=== PATIENT | female | born 1990 | race Caucasian/White ===

== ENCOUNTER 2017-09-13 21:35 | Inpatient (IN) ==
[2017-09-13] MEDS ORDERED: RINGER'S SOLUTION,LACTATED 1,000 ML IV ONE (22:43)
[2017-09-13] MEDS ORDERED: LIDOCAINE HCL 50 ML VIAL PERI PRN (22:43)
[2017-09-13] MEDS ORDERED: OXYTOCIN/DEXTROSE 5%-WATER 30 UNITS/500 ML BAG IV ONE (22:43)
[2017-09-13] MEDS ORDERED: PENICILLIN G POTASSIUM 5 MILLIONUNT in DEXTROSE 5 % IN WATER 100 ML IV ONE ×2 (22:49)
[2017-09-13 23:03] LABS: Hematocrit 31.3 % (37.0-47.0); Mean Cell Volume 86.5 fl (78-100); Mean Corpuscular Hemoglobin 30.4 pg (27-31); Mean Corpuscular Hgb Conc 35.1 g/dl (32-36); Mean Platelet Volume 9.5 fl (8-12.5); Neutrophil # 5.8 K/mm3 (1.3-6.0); Platelet Count 269 K/mm3 (150-450); Red Blood Count 3.62 M/mm3 (4.2-5.4); Red Cell Distribution Width 12.6 % (11.5-14.0); White Blood Count 9.1 K/mm3 (4.0-10.5)
[2017-09-14] MEDS ORDERED: BUPIVACAINE HCL/0.9 % NACL/PF 250 ML EP PRN (00:14)
[2017-09-14] MEDS ORDERED: NALOXONE HCL 1 MG/1 ML SYRG IV PRN (00:14)
[2017-09-14] MEDS ORDERED: ONDANSETRON HCL/PF 2 MG/ML VIAL IV PRN (00:14)
[2017-09-14] MEDS ORDERED: fentaNYL CITRATE/PF 50 MCG/ML AMPUL IT SCH (00:15)
--- NOTE | 2017-09-14 00:59 | ANES ---
Anesthesia Pre Procedure Eval Vitals/Labs: Last Vital Signs Temp 36.7 C 09/13/17 22:00 Pulse 94 09/13/17 22:00 Resp 18 09/13/17 22:00 BP 136/91 H 09/13/17 22:00 Pulse Ox 99 09/13/17 22:00 HOME MEDICATIONS Acetaminophen [Tylenol] 1,000 mg PO Q4H PRN 04/29/14 [Last Taken 04/29/14 11:30] Vits96/Iron Fum/Folic [ S] 1 tab PO DAILY 09/13/17 [Last Taken Unknown] Allergies/Adverse Reactions: Allergies Allergy/AdvReac Type Severity Reaction Status Date / Time pseudoephedrine HCl Allergy Severe Verified 05/16/14 20:50 [From [facility]] - Planned Procedure Planned Procedure: LABOR Medication List Reviewed:: Yes Allergies Verified: Yes - Family Anesthesia History Family History:: no untoward family reactions to anesthesia - Airway/Neck/Teeth Within Normal Limits:: Yes Teeth Condition: Intact, Missing Teeth Mallampatti Score: 2 Thyromental (T-M) distance: > 6 cm Mandibulo Hyoid distance: > 3 cm - Respiratory Respiratory: lungs clear Smoking Status: Former smoker - Cardiovascular Patient History - Cardiac/Respiratory: No pertinent hx Tolerates Activity: Fair Heart Sounds: S1 & S2, Regular - Anesthesia Assessment and Plan ASA Class: PS, II, E Anesthesia Type Plan: Epidural Planned difficult intubation/equipment available: No
--- NOTE | 2017-09-14 01:25 | ANES ---
Anesthesia Procedure Note Procedure Note: ANESTHESIA PROCEDURE NOTE Date of Procedure: 09/14/2017 Time of procedure: 02 18. Performed by: Mandeep Lee CRNA Front Office Associate: None. Preprocedure diagnosis: Active labor. Post procedure diagnosis: Same. Procedure: Insertion of labor epidural. Indications: The patient is a 27 -year-old multigravida female in active labor requesting labor epidural for pain management. Findings: See below. Details of the procedure: The patient was placed in a sitting position. Back was prepped with DuraPrep. Patient was then draped in a sterile fashion. Lidocaine 1% was infiltrated to the skin and subcutaneous tissues at the level of the L3 4 interspace. The epidural space was identified using a 18-gauge Tuohy needle with [id number]-zx-[id number] technique. 20 mcg fentanyl was given intrathecally using a 27 ga. spinal needle. Epidural catheter was inserted without difficulty. Negative test dose was elicited using 5 mL of 1.5% preservative-free lidocaine plus epinephrine 1 200,000. The epidural catheter was then taped and secured in place. EBL: Minimal. Fluids: N/A. Specimen: N/A. Post procedure condition: The patient tolerated the procedure well. No complications were noted. Thank you for this consultation. Plunkett CRNA
[2017-09-14] MEDS ORDERED: PENICILLIN G POTASSIUM 2.5 MILLIONUNT in DEXTROSE 5 % IN WATER 100 ML IV SCH ×2 (02:51)
[2017-09-14 02:59] LABS: Cocaine Ur Negative (NEGATIVE); Urine Barbiturate Negative (NEGATIVE); Urine Benzodiazepines Negative (NEGATIVE); Urine Opiates Positive (NEGATIVE); Urine PCP Negative (NEGATIVE); Urine THC Negative (NEGATIVE)
[2017-09-14] MEDS ORDERED: RINGER S LACTATED IV ONE (04:05)
[2017-09-14] MEDS ORDERED: RINGER'S SOLUTION,LACTATED 1,000 ML IV PRN (04:08)
--- NOTE | 2017-09-14 05:00 | HP ---
Chief Complaint - Chief Complaint Date of Service: 09/14/17 Time of Service: 04:30 Chief Complaint: vaginal bleeding and leaking fluid History of Present Illness: 27 yo at 37 4/7 wks presents to L&D complaining of postcoital vaginal bleeding and gush of fluid with persistent leaking of fluid since around 2114 last night. Patient states she had "rough sex" followed by vaginal bleeding and a gush of clear fluid. Vaginal bleeding like a light period, gush of fluid persisted to run down her leg till presenting here. She recently moved to [place] from [facility]. Denies problems with this or her previous ones. History of meth and THC use (last use 2 yrs ago - went through rehab. This complicated by smoker, poor dentition, + opiate on UDS, and insufficient PNC. Rh positive Rubella status unknown GBS unknown Medical History (Last Updated 09/14/17 @ 04:47 by Eric Duran DO) Chronic periodontal disease Loss of teeth due to extraction Methadone use disorder, mild, in sustained remission Tobacco abuse Family History: Family History (Last Updated 09/14/17 @ 04:48 by Eric Duran DO) Grandmother Cancer Social History: Preferred Language Greek Do you have any taoist or No cultural preference? Smoking Status smoker (1-2 pk/d) Review Of Systems (GEN) - Review of Systems EENTM: Present: Mouth Pain - s/p teeth extraction 2 wks ago, poor dentition- multiple caries Respiratory: Present: No Symptoms Reported Cardiac: Present: No Symptoms Reported Abdominal: Present: Other - contractions Genitourinary: Present: Other - LOF - clear aroun 2315 Musculoskeletal: Present: No Symptoms Reported Neurological: Present: No Symptoms Reported Skin: Present: No Symptoms Reported Endocrine: Present: No Symptoms Reported Allergies/Adverse Reactions: Allergies Allergy/AdvReac Type Severity Reaction Status Date / Time pseudoephedrine HCl Allergy Severe Verified 05/16/14 20:50 [From [facility]] Home Medications: HOME MEDICATIONS Acetaminophen [Tylenol] 1,000 mg PO Q4H PRN 04/29/14 [Last Taken 04/29/14 11:30] Vits96/Iron Fum/Folic [ S] 1 tab PO DAILY 09/13/17 [Last Taken Unknown] Exam - Exam Vital Signs: Vital Signs - Last Taken Temp 36.5 C 09/14/17 01:32 Pulse 77 09/14/17 01:32 Resp 16 09/14/17 01:32 BP 110/57 09/14/17 01:32 Pulse Ox 98 09/14/17 01:32 Constitutional: Present: Alert, Oriented x3, Cooperative, Moderate distress - with contractions ENT Exam: Present: hearing grossly normal, other - poor dentition with multiple caries and missing teeth Neck: Present: non-tender. Absent: thyromegaly Breasts: Present: Exam deferred Respiratory: Present: lungs clear, no respiratory distress Cardiovascular/Chest: Present: normal peripheral pulses, regular rate, rhythm, no edema, no murmur Abdomen: Present: soft, no rebound tenderness /Rectal: Present: Other - cervix 60/-3 upon admission, gross ROM - clear Extremity: Present: non-tender, no pedal edema, no calf tenderness Skin Exam: Present: normal color, warm/dry, no cyanosis Lymphatic: Present: no adenopathy Neurologic: Present: alert, normal mood/affect, oriented x 3 Appearance: Present: appropriate appearance Eye contact: Present: cooperative, good eye contact, normal speech Diagnostic Studies: Abnormal Lab Results 09/13/17 09/14/17 Range/Units 22:55 01:47 RBC 3.62 L (4.2-5.4) M/mm3 Hgb 11.0 L (12.5-16.0) gm/dL Hct 31.3 L (37.0-47.0) % Immature Gran # (Auto) 0.04 H (0.000-0.0310) K/mm3 Monocytes % 10.2 H (0.0-9) % Urine Opiates Screen Positive H (NEGATIVE) Laboratory Results WBC 9.1 K/mm3 (4.0-10.5) 09/13/17 22:55 RBC 3.62 M/mm3 (4.2-5.4) L 09/13/17 22:55 Hgb 11.0 gm/dL (12.5-16.0) L 09/13/17 22:55 Hct 31.3 % (37.0-47.0) L 09/13/17 22:55 MCV 86.5 fl (78-100) 09/13/17 22:55 MCH 30.4 pg (27-31) 09/13/17 22:55 MCHC 35.1 g/dl (32-36) 09/13/17 22:55 RDW 12.6 % (11.5-14.0) 09/13/17 22:55 Plt Count 269 K/mm3 (150-450) 09/13/17 22:55 MPV 9.5 fl (8-12.5) 09/13/17 22:55 Immature Gran % (Auto) 0.40 % (0.001-0.429) 09/13/17 22:55 Immature Gran # (Auto) 0.04 K/mm3 (0.000-0.0310) H 09/13/17 22:55 Neutrophils % 64.0 % (42-75.0) 09/13/17 22:55 Lymphocytes % 23.9 % (20-51) 09/13/17 22:55 Monocytes % 10.2 % (0.0-9) H 09/13/17 22:55 Eosinophils % 1.2 % (0.0-3.0) 09/13/17 22:55 Basophils % 0.3 % (0.0-1.0) 09/13/17 22:55 Nucleated RBC % 0.0 k/mm3 (0-1) 09/13/17 22:55 Neutrophils # 5.8 K/mm3 (1.3-6.0) 09/13/17 22:55 Lymphocytes # 2.18 k/mm3 (1.5-3.5) 09/13/17 22:55 Monocytes # 0.9 k/mm3 (0.0-1.0) 09/13/17 22:55 Eosinophils # 0.1 k/mm3 (0.0-0.7) 09/13/17 22:55 Absolute Basophils 0.0 k/mm3 (0.0-0.1) 09/13/17 22:55 Urine Opiates Screen Positive (NEGATIVE) H 09/14/17 01:47 Barbiturate Screen Negative (NEGATIVE) 09/14/17 01:47 Ur Phencyclidine Scrn Negative (NEGATIVE) 09/14/17 01:47 Urine Amphetamine Negative (NEGATIVE) 09/14/17 01:47 U Benzodiazepines Scrn Negative (NEGATIVE) 09/14/17 01:47 Urine Cocaine Screen Negative (NEGATIVE) 09/14/17 01:47 Urine Marijuana (THC) Negative (NEGATIVE) 09/14/17 01:47 Blood Type O Positive 09/13/17 22:55 Antibody Screen Negative 09/13/17 22:55 Assessment/Plan - Assessment/Plan (1) Spontaneous rupture of amniotic membranes Problem: Acute (2) Labor established Assessment: Admit for management of labor. Epidural PRN. Obtain records from previous Ob. GBS prophylaxis due to unknown GBS status. Problem: Acute (3) Tobacco abuse Assessment: Counseled. Problem: Acute (4) Insufficient care Problem: Acute Qualifiers: Trimester: unspecified trimester Qualified Code(s): O09.30 - Supervision of with insufficient care, unspecified trimester
--- NOTE | 2017-09-14 05:38 | OR ---
Operative Report - Dictated Report Narrative: Spontaneous vaginal delivery viable male at 1718 on 09/14/2017 with Apgars 8 and 9, weighing 2688 g in NICK position. Cord clamping delayed approximately 1 minute Placenta delivered complete, intact, with three vessel cord Estimated blood loss: less than 50 ml Anesthesia: epidural Lacerations: None History for Definition: * The number of deliveries resulting in a live the patient experienced prior to current hospitalization * The previous delivery of live twins or any live multiple gestation is considered one live event. *If primagravida or nulliparous is documented select zero for the number of previous live births. Live Events: 3
[2017-09-14] MEDS ORDERED: OXYTOCIN/DEXTROSE 5%-WATER 30 UNITS/500 ML BAG IV ONE (05:42)
[2017-09-14] MEDS ORDERED: SENNOSIDES 8.6 MG TABLET PO PRN (05:42)
[2017-09-14] MEDS ORDERED: HYDROCORTISONE 30 APPL TUBE TP PRN (05:42)
[2017-09-14] MEDS ORDERED: BISACODYL 10 MG SUPP.RECT RC PRN (05:42)
[2017-09-14] MEDS ORDERED: BENZOCAINE/MENTHOL 81 SPRAY CAN TP PRN (05:42)
[2017-09-14] MEDS ORDERED: GLYCERIN/WITCH HAZEL LEAF 40 APPL BOX TP PRN (05:42)
[2017-09-14] MEDS ORDERED: oxyCODONE HCL/ACETAMINOPHEN 1 TAB TABLET PO PRN (05:42)
[2017-09-14] MEDS: IBUPROFEN 800 MG TABLET PO PRN ×3 (07:23→23:54)
[2017-09-14] MEDS: PRENATAL VITS96/IRON FUM/FOLIC 1 TAB TABLET PO SCH (08:08)
[2017-09-14] MEDS: oxyCODONE HCL/ACETAMINOPHEN 1 TAB TABLET PO PRN ×4 (08:08→23:53)
[2017-09-14] MEDS: DOCUSATE SODIUM 100 MG CAPSULE PO SCH ×2 (08:08→20:50)
[2017-09-14] MEDS: FERROUS SULFATE 325 MG TABLET PO SCH ×2 (08:08→17:04)
[2017-09-15] MEDS: oxyCODONE HCL/ACETAMINOPHEN 1 TAB TABLET PO PRN ×3 (04:55→16:52)
[2017-09-15] MEDS: IBUPROFEN 800 MG TABLET PO PRN ×3 (10:05→23:59)
[2017-09-15] MEDS: FERROUS SULFATE 325 MG TABLET PO SCH ×2 (12:31→16:51)
[2017-09-15] MEDS: PRENATAL VITS96/IRON FUM/FOLIC 1 TAB TABLET PO SCH (12:31)
[2017-09-15] MEDS: DOCUSATE SODIUM 100 MG CAPSULE PO SCH ×2 (12:31→23:59)
--- NOTE | 2017-09-15 14:02 | PN ---
Subjective - Date and Time Seen Date: 09/15/17 Time: 13:59 Objective - Vitals Vitals: Last Vital Signs Temp 36.5 C 09/15/17 12:13 Pulse 73 09/15/17 12:13 Resp 18 09/15/17 12:13 BP 116/74 09/15/17 12:13 Pulse Ox 99 09/15/17 12:13 Patient complains of low back pain. Lochia wnl Abdomen - soft, nontender Uterus - firm, at umbilicus - 1 No calf tenderness Restriction of motion noted in T4, L5, and bilateral sacroiliac joints Impression: day #1 - s/p spontaneous vaginal delivery. Osteopathic lesions of the midthoracic, lower lumbar, and sacrum. Plan: Continue routine care. Combination of muscle energy and HVLA used to treat osteopathic lesions. Cauti Physician Documentation - Urinary Catheter Management Urethral ([facility]) Date of Insertion: 09/14/17 Time of Insertion: 01:30 Date of Removal: 09/14/17 Time of Removal: 05:10 Assessment/Plan - Problems/Diagnosis (1) Spontaneous rupture of amniotic membranes Problem: Acute (2) Labor established Problem: Acute (3) Tobacco abuse Problem: Acute (4) Insufficient care Problem: Acute Qualifiers: Trimester: unspecified trimester Qualified Code(s): O09.30 - Supervision of with insufficient care, unspecified trimester
[2017-09-16] MEDS: oxyCODONE HCL/ACETAMINOPHEN 1 TAB TABLET PO PRN ×2 (04:09→09:36)
[2017-09-16] MEDS: IBUPROFEN 800 MG TABLET PO PRN (06:34)
[2017-09-16] MEDS: DOCUSATE SODIUM 100 MG CAPSULE PO SCH (09:36)
[2017-09-16] MEDS: FERROUS SULFATE 325 MG TABLET PO SCH (09:36)
[2017-09-16] MEDS: PRENATAL VITS96/IRON FUM/FOLIC 1 TAB TABLET PO SCH (09:38)
--- NOTE | 2017-09-16 10:35 | PN ---
Subjective - Date and Time Seen Date: 09/16/17 Time: 10:34 Objective - Vitals Vitals: Last Vital Signs Temp 36.5 C 09/16/17 00:00 Pulse 56 L 09/16/17 00:00 Resp 16 09/16/17 00:00 BP 125/78 09/16/17 00:00 Pulse Ox 98 09/16/17 00:00 Patient still complains of low back pain but improved since yesterday. Breast- feeding. Lochia wnl Abdomen - soft, nontender Uterus - firm, at umbilicus - 2 No calf tenderness Impression: day #2 - s/p spontaneous vaginal delivery. Smoker- counseled. Plan: Routine discharge instructions. Quit smoking. Cauti Physician Documentation - Urinary Catheter Management Urethral ([facility]) Date of Insertion: 09/14/17 Time of Insertion: 01:30 Date of Removal: 09/14/17 Time of Removal: 05:10 Assessment/Plan - Problems/Diagnosis (1) Spontaneous rupture of amniotic membranes Problem: Acute (2) Labor established Problem: Acute (3) Tobacco abuse Problem: Acute (4) Insufficient care Problem: Acute Qualifiers: Trimester: unspecified trimester Qualified Code(s): O09.30 - Supervision of with insufficient care, unspecified trimester
[2017-09-16 13:52] VITALS: BP 122/81
== END 2017-09-16 11:35 | disposition home or self-care (01) | DRG 775 ==
LOC: OB 21:35
PROVIDERS: ADMIT Obstetrics & Gynecology; ATTEND Obstetrics & Gynecology
CPT/HCPCS: 36415; 59025; 80307; 85025; 86850; 86900; 88307; G0479